=== PATIENT | male | born 1990 | race Caucasian/White ===

== ENCOUNTER 2020-02-22 19:02 | Emergency (ER) | payer BC, OTHER ==
[2020-02-22 19:23] VITALS: BP 146/89; PULSE 105; TEMP 97.8; BMI 31.1
[2020-02-22] MEDS ORDERED: ACETAMINOPHEN 325 MG TABLET (FP) PO ONE (20:16)
[2020-02-22 20:45] LABS: BASO % 0.5 % (0-2.0); EOS % 3.3 % (0-4.5); HEMATOCRIT 43.7 % (35.4-49); LYMPH % 25.3 % (8-40); MCHC 34.3 g/dl (32.0-35.9); MEAN CELL VOLUME 84.6 fl (80-96); MEAN PLT VOLUME 9.6 fl (7.5-11.1); MONO % 5.2 % (3.8-10.2); NEUT % 65.7 % (42.8-82.8); PLATELET COUNT 232 K/MM3 (134-434); RBC 5.17 M/mm3 (4.00-5.60); RDW 13.1 % (11.9-15.9); WHITE BLOOD COUNT 6.1 K/mm3 (4.0-10.0)
[2020-02-22 20:56] LABS: CHLORIDE 102 mmol/L (98-107); SODIUM 140 mmol/L (136-145)
[2020-02-22 20:58] LABS: CALCIUM 9.6 mg/dL (8.5-10.1)
[2020-02-22 20:59] LABS: ALBUMIN 4.4 g/dl (3.4-5.0); ANION GAP 5 MMOL/L (8-16); BLOOD UREA NITROGEN 16.6 mg/dL (7-18); CO2 33 mmol/L (21-32); GLUCOSE,RANDOM 127 mg/dL (74-106); MAGNESIUM 2.2 mg/dL (1.8-2.4)
[2020-02-22] MEDS ORDERED: ACETAMINOPHEN 325 MG TABLET (FP) ONE (21:00)
[2020-02-22 21:02] LABS: CREATININE 1.1 mg/dL (0.55-1.3); SGOT/AST 29 U/L (15-37); SGPT/ALT 40 U/L (13-61)
[2020-02-22 21:03] LABS: BILIRUBIN,TOTAL 0.4 mg/dL (0.2-1)
[2020-02-22 21:04] LABS: TOT PROT 7.8 g/dl (6.4-8.2)
[2020-02-22 21:05] LABS: ALK PHOS 83 U/L (45-117)
== END 2020-02-22 21:56 | disposition home or self-care (01) ==
LOC: JER 19:02
DX: R00.2 Palpitations (principal)
CPT/HCPCS: 36415; 71046-TC-FY; 80053; 82550; 83735; 84443; 84484; 85025; 93005; 93010; 99285-25; C9803; U0003

== ENCOUNTER 2022-10-19 11:39 | Inpatient (IN) | payer BC ==
[2022-10-19] MEDS ORDERED: ACETAMINOPHEN 1000 MG/100 ML BAG IVPB ONE (12:12)
[2022-10-19] MEDS ORDERED: LACTATED RINGERS SOLUTION 1000 ML INFUS.BAG IV ONE (12:12)
[2022-10-19] MEDS ORDERED: ACETAMINOPHEN INJECTION 100 ML IVPB ONE (12:22)
[2022-10-19 12:33] LABS: VENOUS O2 SATURATION 77.5 % (70-80); VENOUS PCO2 45.7 mmHg (38-52); VENOUS PH 7.396 (7.310-7.410)
[2022-10-19 12:36] LABS: BASO % 0.4 % (0-2.0); EOS % 0.7 % (0-4.5); HEMATOCRIT 41.6 % (35.4-49); HEMOGLOBIN 14.1 GM/dL (11.7-16.9); MCH 27.8 pg (25.7-33.7); MCHC 33.9 g/dl (32.0-35.9); MEAN CELL VOLUME 82.1 fl (80-96); MEAN PLT VOLUME 9.2 fl (7.5-11.1); MONO % 4.8 % (3.8-10.2); NEUT % 87.1 % (42.8-82.8); PLATELET COUNT 218 10^3/uL (134-434); RBC 5.06 M/mm3 (4.00-5.60); RDW 13.6 % (11.9-15.9); WHITE BLOOD COUNT 10.2 K/mm3 (4.0-10.0)
[2022-10-19 12:46] LABS: INR 0.99 (0.83-1.09); PROTHROMBIN TIME (PATIENT) 11.5 SEC (9.7-13.0)
[2022-10-19 12:49] LABS: ACTIVATED PTT 30.2 SECONDS (25.2-36.5)
[2022-10-19 12:54] LABS: POTASSIUM 4.1 mmol/L (3.5-5.1)
[2022-10-19 12:56] LABS: CALCIUM 8.8 mg/dL (8.5-10.1)
[2022-10-19 12:57] LABS: ALBUMIN 3.9 g/dl (3.4-5.0); BLOOD UREA NITROGEN 14.9 mg/dL (7-18); MAGNESIUM 1.7 mg/dL (1.8-2.4)
[2022-10-19 13:01] LABS: BILIRUBIN,TOTAL 0.4 mg/dL (0.2-1); CREATININE 1.1 mg/dL (0.55-1.3)
[2022-10-19 13:05] LABS: N-TERMINAL BNP 129.1 pg/ml (5-125)
[2022-10-19] MEDS ORDERED: MAGNESIUM SULF 50% (8.12 MEQ/2 ML-1 GM VIAL) IVPB ONE (13:33)
[2022-10-19] MEDS ORDERED: CEFTRIAXONE 1 GM in DEXTROSE 5%-WATER - 100 ML IVPB ONE (13:50)
[2022-10-19] MEDS ORDERED: AZITHROMYCIN IVPB 500 MG in DEXTROSE 5%-WATER - 250 ML IVPB ONE (13:50)
[2022-10-19] MEDS ORDERED: ASPIRIN 81 MG CHEWABLE TABLETS PO ONE (14:15)
[2022-10-19] MEDS ORDERED: ASPIRIN 81 MG CHEWABLE TABLETS ONE (14:22)
[2022-10-19] MEDS ORDERED: MAGNESIUM 1GM/D5W - 1 GM/100 ML IVPB IVPB ONE (14:23)
[2022-10-19] MEDS ORDERED: CEFTRIAXONE 1 GM/50 ML BAG ONE (14:23)
[2022-10-19] MEDS ORDERED: AZITHROMYCIN IVPB 500 MG/250 ML BAG IVPB ONE (16:30)
[2022-10-19] MEDS ORDERED: amLODIPine BESYLATE 5 MG TABLET (FP) PO ONE (16:53)
[2022-10-19] MEDS: PANTOPRAZOLE 40 MG TABLET PO SCH (17:07)
[2022-10-19] MEDS: ACETAMINOPHEN 325 MG TABLET (FP) PO PRN (17:07)
[2022-10-19 18:57] VITALS: BMI 36.1
[2022-10-19 19:30] LABS: HIV INTERPRETATION NEGATIVE (NEGATIVE)
[2022-10-19 22:36] LABS: URINE APPEARANCE CLEAR; URINE BILIRUBIN NEGATIVE (NEGATIVE); URINE COLOR YELLOW; URINE GLUCOSE (UA) NEGATIVE (NEGATIVE); URINE KETONE NEGATIVE (NEGATIVE); URINE LEUK ESTERASE NEGATIVE (NEGATIVE); URINE NITRITE NEGATIVE (NEGATIVE); URINE PROTEIN NEGATIVE (NEGATIVE); URINE UROBILINOGEN 0.2 mg/dL (0.2-1.0)
[2022-10-20 07:44] LABS: HEMATOCRIT 43.3 % (35.4-49); HEMOGLOBIN 14.5 GM/dL (11.7-16.9); MCH 27.7 pg (25.7-33.7); MCHC 33.5 g/dl (32.0-35.9); MEAN CELL VOLUME 82.8 fl (80-96); MEAN PLT VOLUME 9.4 fl (7.5-11.1); PLATELET COUNT 228 10^3/uL (134-434); RBC 5.23 M/mm3 (4.00-5.60); WHITE BLOOD COUNT 7.2 K/mm3 (4.0-10.0)
[2022-10-20 08:09] LABS: URIC ACID 7.5 mg/dL (2.6-7.2)
[2022-10-20 08:11] LABS: POTASSIUM 4.2 mmol/L (3.5-5.1)
[2022-10-20 08:16] LABS: BLOOD UREA NITROGEN 11.8 mg/dL (7-18)
[2022-10-20 08:17] LABS: ALBUMIN 3.6 g/dl (3.4-5.0)
[2022-10-20 08:20] LABS: CREATININE 0.9 mg/dL (0.55-1.3)
[2022-10-20 08:21] LABS: BILIRUBIN,TOTAL 0.6 mg/dL (0.2-1); TOT PROT 6.7 g/dl (6.4-8.2)
[2022-10-20] MEDS ORDERED: CEFTRIAXONE 1 GM in DEXTROSE 5%-WATER - 50 ML IVPB SCH (10:00)
[2022-10-20] MEDS ORDERED: AZITHROMYCIN IVPB 500 MG/250 ML BAG IVPB SCH (10:00)
[2022-10-20] MEDS: ACETAMINOPHEN 325 MG TABLET (FP) PO PRN ×2 (10:37→21:02)
[2022-10-20] MEDS: amLODIPine BESYLATE 5 MG TABLET (FP) PO SCH (10:39)
[2022-10-20] MEDS: PANTOPRAZOLE 40 MG TABLET PO SCH (10:39)
[2022-10-20] MEDS: PIPERACILLIN/TAZOB 3.375 GM 3.375 GM in DEXTROSE 5%-WATER - 50 ML IVPB SCH (17:24)
[2022-10-21] MEDS: PIPERACILLIN/TAZOB 3.375 GM 3.375 GM in DEXTROSE 5%-WATER - 50 ML IVPB SCH ×3 (00:59→17:14)
[2022-10-21] MEDS: amLODIPine BESYLATE 5 MG TABLET (FP) PO SCH (09:24)
[2022-10-21] MEDS: PANTOPRAZOLE 40 MG TABLET PO SCH (09:24)
[2022-10-22] MEDS: PIPERACILLIN/TAZOB 3.375 GM 3.375 GM in DEXTROSE 5%-WATER - 50 ML IVPB SCH ×2 (01:10→09:01)
[2022-10-22 07:23] LABS: BASO % 0.6 % (0-2.0); EOS % 4.1 % (0-4.5); HEMATOCRIT 46.8 % (35.4-49); HEMOGLOBIN 15.6 GM/dL (11.7-16.9); LYMPH % 15.3 % (8-40); MCHC 33.3 g/dl (32.0-35.9); MEAN CELL VOLUME 84.1 fl (80-96); MEAN PLT VOLUME 9.9 fl (7.5-11.1); MONO % 6.3 % (3.8-10.2); NEUT % 73.7 % (42.8-82.8); PLATELET COUNT 282 10^3/uL (134-434); RBC 5.56 M/mm3 (4.00-5.60); WHITE BLOOD COUNT 8.8 K/mm3 (4.0-10.0)
[2022-10-22 07:46] LABS: POTASSIUM 4.5 mmol/L (3.5-5.1)
[2022-10-22 07:50] LABS: ALBUMIN 3.7 g/dl (3.4-5.0); BLOOD UREA NITROGEN 20.1 mg/dL (7-18); CALCIUM 9.6 mg/dL (8.5-10.1); MAGNESIUM 2.3 mg/dL (1.8-2.4)
[2022-10-22 07:53] LABS: CREATININE 1.1 mg/dL (0.55-1.3)
[2022-10-22 07:55] LABS: BILIRUBIN,TOTAL 0.6 mg/dL (0.2-1)
[2022-10-22] MEDS: amLODIPine BESYLATE 5 MG TABLET (FP) PO SCH (09:01)
[2022-10-22] MEDS: PANTOPRAZOLE 40 MG TABLET PO SCH (09:01)
[2022-10-22 12:02] VITALS: BP 130/71; PULSE 91; RESP 16; TEMP 98.4
[2022-10-22] MEDS ORDERED: AMOX TR/POT CLAV 875MG/125MG TABLETS (FP) PO SCH (17:30)
[2022-10-23 19:07] LABS: ATYPICAL pANCA <1:20 titer (Neg:<1:20); C-ANCA <1:20 titer (Neg:<1:20)
== END 2022-10-22 16:43 | disposition home or self-care (01) | DRG 194 ==
LOC: JER 11:39 → JERBED 14:12 → J2W 15:11
PROVIDERS: ADMIT Family Medicine; ATTEND Family Medicine
DX: J18.9 Pneumonia, unspecified organism (principal); I24.8 Other forms of acute ischemic heart disease; I10 Essential (primary) hypertension; M10.9 Gout, unspecified; E66.9 Obesity, unspecified; Z68.36 Body mass index [BMI] 36.0-36.9, adult; R07.81 Pleurodynia; R09.02 Hypoxemia; R77.8 Other specified abnormalities of plasma proteins
CPT/HCPCS: 0241U-QW; 36415; 71045-TC-FY; 71275-TC; 80053; 81003; 82550; 82803; 83036; 83516; 83520; 83605; 83735; 83874; 83880; 84100; 84484; 84550; 85025; 85027; 85610; 85651; 85730; 86038; 86140; 86256; 86480; 86850; 86900; 86901; 87040; 87086; 87389; 93005; 93010; 93306-TC; 99291; Q9967